=== PATIENT | female | born 1980 | race Caucasian/White ===

== ENCOUNTER → 2017-11-22 | Outpatient (CLI) | payer MEDICAID ==
[~2017-11-22] MED LIST: AMOX875 PO
== END ==
LOC: HPND 11:43
PROVIDERS: ATTEND Obstetrics & Gynecology
DX: O09.522 Supervision of elderly multigravida, second trimester (principal); O28.5 Abnormal chromosomal and genetic finding on antenatal screening of mother
CPT/HCPCS: 76811